=== PATIENT | female | born 2000 | race Caucasian/White ===

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

== ENCOUNTER → 2021-10-23 11:14 | Outpatient (CLI) | payer OTHER, SELFPAY ==
--- NOTE | ~2021-10-23 | XR_ITS ---
EXAMINATION: XR sacrum coccyx min 2V EXAM DATE: 10/23/2021 11:32 INDICATION: Pain After Fall Once Today. TECHNIQUE: Sacrum frontal, inlet, lateral projections. There is no prior study for comparison. FINDINGS: There is minimal bilateral sacroiliac and pubic symphysis osteoarthritis. There are no bon y erosions identified. There are no acute fractures or dislocations identified. There is no subcutan eous gas. The soft tissue is unremarkable. There are no radiopaque foreign bodies. IMPRESSION: Minimal bilateral sacroiliac, pubis symphysis osteoarthritis. Reviewed, dictated and finalized at location G. E DELIVERY CLERK
== END ==
PROVIDERS: PCP Pediatrics; Visit Provider Pediatrics
DX: S39.82XA Other specified injuries of lower back, initial encounter (principal); M47.898 Other spondylosis, sacral and sacrococcygeal region
CPT/HCPCS: 72220

== ENCOUNTER 2024-05-24 08:16 | Emergency (ER) | payer OTHER, SELFPAY ==
--- NOTE | ~2024-05-24 | XR_ITS ---
EXAMINATION: XR chest 2V DATE: 05/24/2024 08:50 INDICATION: Congestion TECHNIQUE: PA and lateral views of the chest were obtained. COMPARISON: None FINDINGS: The lungs are clear with no focal airspace opacities, pulmonary edema, pleural effusion or pneumothor ax. The cardiomediastinal silhouette is normal. Visualized bones and soft tissues are unremarkable. IMPRESSION: 1. No acute cardiopulmonary disease. Reviewed, dictated and finalized at location A.
--- NOTE | 2024-05-24 08:26 | ED.URI ---
HPI - URI/Sore Throat General Chief Complaint: Upper Respiratory Infection Stated Complaint: cough, heaviness in chest Time Seen by Provider: 05/24/24 08:27 Source: patient Mode of arrival: ambulatory Limitations: no limitations History of Present Illness HPI Narrative: Randee is a 23-year-old female patient presenting to the clinic today with complaints of cough and chest heaviness x2 days. She reports she is bringing up some green phlegm when she is coughing. Denies any fever, chills, body aches. Does report some shortness of breath/chest congestion. No known exposure to anyone with COVID. She vapes and smokes marijuana. MD elicited complaint: cough and other (Chest congestion and shortness of breath) Related Data Home Medications Medication Instructions Recorded Confirmed etonogestrel 68 mg subdermal 1 implant subdermal ONCE 08/06/20 05/24/24 implant (Nexplanon) Allergies Allergy/AdvReac Type Severity Reaction Status Date / Time bupropion Allergy Intermediate Rash Verified 05/24/24 08:28 Review of Systems Review of Systems: Pertinent positives per HPI. Patient denies any fever, chills, rash, headache, visual changes, dizziness, shortness of breath, chest pain, palpitations, nausea, vomiting, diarrhea, constipation, abdominal pain, or any urinary issues. PMFSH Social History Social History Smoking status: Never smoker Substance use: never Living arrangements: with family Gender identity (if verbalized by the patient): Female Comments At the time of my signature, I reviewed and agree with the nursing past medical, surgical, social, and family history. There is no relevant family history pertinent to the patient complaint. Exam Narrative: General: Well-developed, well nourished, in no apparent distress Head: Normocephalic, atraumatic Eyes: Pupils equally round and reactive to light bilaterally, EOM intact, sclera and conjunctive clear, no discharge, lids normal Ears: TMs intact and clear, ear canals clear, no drainage, grossly hearing normal. Nose: Nares patent, clear nasal discharge, no inflammation, no sinus tenderness. Mouth: Oral pharynx without lesions or masses, good dentition, MMM. Neck: Supple, trachea midline, no enlargement of anterior or posterior cervical nodes, no thyroid masses or goiter palpable. Cardio: Regular rate and rhythm, s1 and s2 normal, no murmur appreciated. Resp: Slightly diminished in the bases, no rhonchi, rales, wheezing or rubs Course Course Emergency Course: Portions of this record may have been created with voice recognition software. Level of Care: Express Care Visit Vital Signs Vital signs: Vital signs reviewed MDM - URI/Sore Throat MDM Narrative Medical decision making narrative: At the time of visit patient is resting comfortably on the exam table. Patient appears to be nontoxic. Labs: Bedside with test was performed and was negative. Diagnosis: Chest x-ray was performed and was negative for any sign of acute cardiopulmonary process. Plan: I suspect patient has bronchitis. Prescription for prednisone and albuterol inhaler was sent to the pharmacy. Supportive measures were discussed with the patient and they voiced understanding discharge instructions and agrees to treatment plan. Return precautions reviewed Differential Diagnosis Differential diagnosis: Likely upper respiratory infection, otitis media, sinusitis, viral infection, bronchitis, influenza, pharyngitis and other (COVID) Discharge Plan Discharge Clinical Impression: Bronchitis Patient Disposition: Home, Self-Care Condition: Stable Instructions: Antibiotic Form, Acute Bronchitis (ED) Additional Instructions: Bedside test was negative in the clinic today. Chest x-ray was performed and was negative for any acute cardiopulmonary disease. Take prescription medications only a
[2024-05-24 08:30] VITALS: BP 135/92; PULSE 91; RESP 16; TEMP 37.6; O2SAT 100
[2024-05-24 10:32] LABS: BEDSIDEPREGUCG Negative
== END 2024-05-24 09:10 | disposition home or self-care (01) ==
PROVIDERS: Emergency Provider Nurse Practitioner Family
DX: J40 Bronchitis, not specified as acute or chronic (principal)
CPT/HCPCS: 71046; 81025; 99213; G0463